=== PATIENT | male | born 1945 | race Caucasian/White ===

== ENCOUNTER 2018-09-28 08:39 | Outpatient (CLI) | payer MEDICARE ==
--- NOTE | 2018-09-28 11:04 | CT ---
CT OF ABDOMEN AND PELVIS PERFORMED WITH INTRAVENOUS CONTRAST ENHANCEMENT: History: Prostate cancer with rising PSAs. History of blood clots and a venocaval filter. Comparison: None. FINDINGS: The lung bases show some linear atelectasis or scar. No pulmonary nodules or pleural effusions. The liver and spleen are normal in appearance. The pancreas shows a tiny cystic lesion of the body of the pancreas measuring 15 mm. This could represent a small cystic neoplasm of the pancreas. The gall bladder shows a large single gallstone. Right and left adrenal glands and right and left kidneys are normal in size. There is no significant periaortic or mesenteric adenopathy. CT OF PELVIS PERFORMED WITH CONTRAST ENHANCEMENT: Patient has undergone prostate surgery. There is a mass seen along the left side of the base of the b ladder that measures approximately 1.6 cm. There is no significant pelvic lymphadenopathy noted. Surg ical clips are seen near the level of the aortic bifurcation. Review of osseous structures show no lytic or blastic bony changes. IMPRESSION: 1. Approximately 16 mm mass seen along the left side of the base of the bladder. Further evaluation w ith cystoscopy would be recommended. 2. No signs of any significant pelvic or abdominal adenopathy or evidence of mass. 3. Gallstone. 4. 15 mm cystic appearing lesion at the body of the pancreas. 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 Follow up in 6-12 months would be recommended. 5. Hiatal hernia incidentally noted. POS: [facility]
[2018-09-28] MEDS ORDERED: Iopamidol 370 76% 100 ML VIAL ONE (13:16)
--- NOTE | 2018-09-28 15:21 | NM ---
NUCLEAR MEDICINE BONE SCAN: HISTORY: Malignant neoplasm. History of prostate cancer. PSAs have risen. History of blood clots with infer ior vena cava filter. TECHNIQUE: Whole body spot images are performed. The patient was injected with 32 millicuries technetium 99m AB P intravenously. FINDINGS: There is evidence for bilateral renal and bladder activity. There is a focal area of increased activ ity at what appears to be approximately the left anterior 5th rib, near the costochondral junction. This rib appears to be slightly deformed, with an appearance more suggesting that of a healed or heal ing fracture, rather than an overt metastasis. There is some minimal increased activity involving th e L5-S1 region, on the right and left side, as well as the T10-T11 region on the right side, and a sm all focus of increased activity in the left cervical spine region. Minimally increased activity in t he shoulders, knees, and ankles, evidence for degenerative and osteoarthrosis change. IMPRESSION: 1. Several scattered areas of abnormal increased activity noted, as above. 2. The left 5th anterior rib, at the anterior costochondral junction region, has an appearance most suggestive of a rib fracture. 3. The other areas of increased activity are certainly nonspecific and certainly could represent deg enerative and osteoarthrosis changes. No scan evidence for definitively metastasis. POS: [facility]
== END 2018-09-28 08:40 | disposition home or self-care (01) ==
LOC: CT 08:39
PROVIDERS: ATTEND Radiology Radiation Oncology
DX: C61 Malignant neoplasm of prostate (principal); R97.21 Rising PSA following treatment for malignant neoplasm of prostate; K80.80 Other cholelithiasis without obstruction; K86.2 Cyst of pancreas
CPT/HCPCS: 74177; 78306; 82565; A9503; Q9967

== ENCOUNTER 2018-10-20 00:30 | Outpatient (CLI) | payer MEDICARE ==
[2018-10-20 10:17] LABS: Hemoglobin 14.3 g/dL (14.0-18.0); Mean Corpuscular HGB CONC 32.9 g/dL (32.0-36.0); Mean Corpuscular Hemoglobin 30.3 pg (27.0-31.0); Mean Corpuscular Volume 92.1 fL (78.0-98.0); Mean Platelet Volume 7.3 fL (7.4-10.4); Platelet Count 196 thou/uL (130-400); RBC Distribution Width 12.3 % (11.5-14.5); Red Blood Cell (RBC) Count 4.72 mill/uL (4.70-6.10); White Blood Cell (WBC) Count 6.5 thou/uL (4.8-10.8)
[2018-10-20 10:18] LABS: INR-International Normal Ratio 2.1; PTT 42.8 SEC (22.9-36.1)
[2018-10-20 10:31] LABS: Anion Gap 12 mmol/L (10-20); BUN (Urea Nitrogen) 19 mg/dL (8.4-25.7); Calc. Creatinine Clearance 0 mL/min (70-130); Calcium 9.9 mg/dL (7.8-10.44); Carbon Dioxide 27 mmol/L (23-31); Chloride 100 mmol/L (98-107); Estimated GFR-MDRD 76; Glucose 113 mg/dL (83-110); Potassium 4.5 mmol/L (3.5-5.1); Sodium 134 mmol/L (136-145)
--- NOTE | 2018-10-21 07:44 | EKG ---
Test Reason : Blood Pressure : / mmHG Vent. Rate : 059 BPM Atrial Rate : 059 BPM P-R Int : 292 ms QRS Dur : 102 ms QT Int : 420 ms P-R-T Axes : 066 010 061 degrees QTc Int : 415 ms Sinus bradycardia with 1st degree A-V block Cannot rule out Anterior infarct , age undetermined /Poor R wave progression Abnormal ECG No previous ECGs available Confirmed by WALTER ROSEN ([id number]) on 10/21/2018 7:43:39 AM Referred By: GLORIA Confirmed By:WALTER ROSEN
== END 2018-10-20 00:31 | disposition home or self-care (01) ==
LOC: LABBT 00:30
PROVIDERS: ATTEND Urology
DX: Z01.818 Encounter for other preprocedural examination (principal); D49.4 Neoplasm of unspecified behavior of bladder
CPT/HCPCS: 80048; 85027; 85610; 85730; 93005; 93010

== ENCOUNTER 2018-10-25 07:57 | Day surgery (SDC) | payer MEDICARE ==
[2018-10-20 08:47] VITALS: BMI 37.8
[2018-10-25] MEDS ORDERED: Sodium Chloride 0.9% 100 ML ONE (08:20)
[2018-10-25] MEDS ORDERED: cefTRIAXone\\ROCEPHIN 2 GM VIAL ONE (08:20)
[2018-10-25] MEDS ORDERED: Fentanyl 100 MCG/2 ML VIAL ONE (09:56)
[2018-10-25] MEDS ORDERED: Famotidine/PF 20 mg/2ml Vial ONE (09:56)
[2018-10-25] MEDS ORDERED: Iothalamate Meglumine 60% 50 ML VIAL FS ONE (09:57)
--- NOTE | 2018-10-25 12:49 | OP ---
DATE OF PROCEDURE: 10/25/2018 PREOPERATIVE DIAGNOSIS: Bladder tumors. POSTOPERATIVE DIAGNOSIS: Bladder tumors. PROCEDURES PERFORMED: Cysto, transurethral resection of bladder tumour, and bilateral retrogrades and intravesical instillation of chemotherapeutic agent. ANESTHESIA: General. ESTIMATED BLOOD LOSS: Less than 50 mL. DRAINS PLACED: An 18-English Castellon catheter with 20 mL in wound. FINDINGS: He had a 2-cm papillary tumor on the floor just to the left of the midline, that was done, both the superficial and deep. The other tumors were all 0.5 cm or less. There were a group of them that were around, but not involving in the ureteral orifice and bladder neck and some satellite ones. These were sent off as bladder tumors from bladder neck and additional bladder tumors. Retrograde studies were done that did not show any persistent filling defect or any areas of obstruction. This was done after the resection, to be sure that they did drain well and that no stents would be required. DESCRIPTION OF PROCEDURE: Obtained written and verbal consent from the patient after receiving IV antibiotics, he was taken to the operating suite. He was placed in the supine position on the treatment table. PlexiPulses were placed on his lower extremities and turned on. He was given a general anesthetic and oral intubation. He was placed in dorsal lithotomy position. He was sterilely prepped and draped. Cystoscopy was performed with a 22-English sheath. This was well lubricated, passed under direct vision through the male urethra into the bladder with a 30-degree lens and video camera, and monitor. The bladder was filled and emptied, these were examined with both the 30 and 70-degree lenses. We then removed the instruments to pass a 24-English resectoscope sheath. This did require dilatation up to 26-English with [place] sounds. The sheath was well lubricated and passed with the visual obturator through the male urethra into the bladder. The obturator was removed and Martin resectoscope with gyrus generator and gyrus bladder tumor loop, a 30 lens and video camera and monitor were used. We initially resected the bladder tumor on the floor and sent this as the individual specimen. The small bladder tumors around the trigone and bladder neck region and sent those as a specimen. Then, additional bladder tumors that were laterally, sent them as a separate specimen and then deep from the initial floor resection, we then cauterized all these areas. We removed the instruments, brought back in a 22-English sheath with 30-degree lens, well lubricated through the male urethra into the bladder with aid of a 30-degree lens and video camera and monitor, flushed a 5-English Pollack catheter, took a custodial aide film with the fluoroscopy unit and then did a left retrograde followed by right retrograde using about 15 mL of contrast in both sides and then taking delayed films to be sure both ureters drained well, which they did. The findings are as above. A Castellon catheter was then sterilely inserted. The bladder was drained. It was gently irrigated with some sterile water, it was clear. We then passed a 50 mL of fluid that containing 40 mg of mitomycin and placed the catheter plugging that will stay until he recovers in 30 to 40 minutes in Recovery Room. He was then taken down the dorsal lithotomy position, awakened, extubated, and taken by stretcher to Recovery Room. Job ID: [id number]
--- NOTE | 2018-10-25 13:14 | RAD ---
RETROGRADE IVP TWO IMAGES: INDICATIONS: History of cystoscopy. COMPARISON: Prior CT abdomen and pelvis dated 09/28/2018. FINDINGS: The two submitted images demonstrate a cystoscope present within the lower central pelvis. There is selection of the right and left distal ureters with retrograde opacification with contrast. No visib le filling defect or strictures identified. The patient's known left-sided bladder mass is not detai led on the current examination. An IVC filter is seen to the right of midline, at L2. There are num erous surgical clips seen within the left aspect of the retroperitoneum. IMPRESSION: No visible filling defect or stricture seen within the opacified ureters bilaterally. POS: [facility]
== END 2018-10-25 13:33 | disposition home or self-care (01) ==
LOC: SDC 07:57
PROVIDERS: ATTEND Urology
PROC: 0T5B8ZZ Destruction of Bladder, Via Natural or Artificial Opening Endoscopic (ICD-10-PCS; principal; 2018-10-25)
PROC: BT141ZZ Fluoroscopy of Kidneys, Ureters and Bladder using Low Osmolar Contrast (ICD-10-PCS; 2018-10-25)
DX: C67.9 Malignant neoplasm of bladder, unspecified (principal); I10 Essential (primary) hypertension; K21.9 Gastro-esophageal reflux disease without esophagitis; Z86.718 Personal history of other venous thrombosis and embolism; Z86.711 Personal history of pulmonary embolism; Z79.01 Long term (current) use of anticoagulants; Z79.899 Other long term (current) drug therapy
CPT/HCPCS: 52234; 74420; J9280; 88305; 88307; A4216; C1758; J0131; J0696; J3010; J7050; Q9961; S0028

== ENCOUNTER 2019-02-03 01:32 | Outpatient (CLI) | payer MEDICARE ==
[2019-02-03 15:28] LABS: Hemoglobin 13.7 g/dL (14.0-18.0); Mean Corpuscular HGB CONC 33.8 g/dL (32.0-36.0); Mean Corpuscular Hemoglobin 30.5 pg (27.0-31.0); Mean Corpuscular Volume 90.3 fL (78.0-98.0); Platelet Count 215 thou/uL (130-400); RBC Distribution Width 12.4 % (11.5-14.5); Red Blood Cell (RBC) Count 4.48 mill/uL (4.70-6.10); White Blood Cell (WBC) Count 7.7 thou/uL (4.8-10.8)
[2019-02-03 15:53] LABS: Anion Gap 10 mmol/L (10-20); BUN (Urea Nitrogen) 24 mg/dL (8.4-25.7); Calc. Creatinine Clearance 0 mL/min (70-130); Calcium 9.9 mg/dL (7.8-10.44); Carbon Dioxide 29 mmol/L (23-31); Chloride 100 mmol/L (98-107); Estimated GFR-MDRD 85; Glucose 101 mg/dL (83-110); Potassium 4.4 mmol/L (3.5-5.1); Sodium 135 mmol/L (136-145)
== END 2019-02-03 01:33 | disposition home or self-care (01) ==
LOC: LABBT 01:32
PROVIDERS: ATTEND Urology
DX: Z01.818 Encounter for other preprocedural examination (principal); C67.8 Malignant neoplasm of overlapping sites of bladder
CPT/HCPCS: 80048; 85027; 87086

== ENCOUNTER → 2019-02-07 | Day surgery (SDC) | payer MEDICARE ==
[2019-02-03 13:40] VITALS: BMI 36.5
[~2019-02-07] MED LIST: Fentanyl 100 MCG/2 ML VIAL ONE; Iothalamate Meglumine 60% 50 ML VIAL FS ONE
[2019-02-07 06:56] LABS: INR-International Normal Ratio 1.1; PTT 32.6 SEC (22.9-36.1); Prothrombin Time 14.6 SEC (12.0-14.7)
--- NOTE | 2019-02-07 08:09 | RAD ---
Retrograde pyelogram: 02/07/2019 COMPARISON: 10/25/2018 HISTORY: Stone/stent FINDINGS: IVC filter present. Postoperative clips noted in the medial left lower quadrant. Contrast m edia is injected into bilateral ureters opacifying normal caliber ureters bilaterally. No discrete filling defect is apparent on either side. Configuration of the renal collecting system is stable sigrid aterally when compared to the 10/25/2018 examination. IMPRESSION: Stable bilateral retrograde pyelogram.
--- NOTE | 2019-02-07 11:43 | CT ---
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 No pericardial effusion. Focal area of scar or atelectasis right lower lobe, similar. There is cholelithiasis. Spleen is unremarkable. Hypodensity superior pole right kidney too small ful ly characterize although statistically likely a cyst. No hydronephrosis. IVC filter is in place. There are what appear to be surgical clips along the left retroperitoneal periaortic kelli chain. Mild focal ectasia of the infrarenal abdominal aorta without aneurysmal dilatation. A the junction of the ventral aspect of the pancreatic head and body is a size and changes nonenhanci ng fluid consistency mass of the pancreas. This does not have clear communication with the main pancreatic duct. Remainder the pancreas is unremarkable. No adenopathy. Liver is unremarkable. The celiac trunk is patent. There is approximately 30-40% narro wing of the superior mesenteric artery for length of 4 cm due to soft plaque. Distal branches are patent. 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 Per ACR white paper, pancreatic protocol CT or MRI recommended in 6 months.
--- NOTE | 2019-02-07 13:54 | OP ---
DATE OF PROCEDURE: 02/07/2019 PREOPERATIVE DIAGNOSIS: History of transitional cell carcinoma of the urinary bladder. POSTOPERATIVE DIAGNOSIS: History of transitional cell carcinoma of the urinary bladder. PROCEDURES PERFORMED: Cystoscopy, bilateral retrogrades, and bladder biopsies. ANESTHETIC: General. EBL: Minimal. FINDINGS: There was one area on the right side of the bladder wall behind the right ureteral orifice that appeared to be a very early papillary cancer. There is a little bit of area of thickening mucosa on the trigone, I think this is a prior biopsy site. This is rebiopsy. There is area in the floor that we rebiopsied, which was a prior biopsy site that do not look suspicious and then, there was an area of some abnormal mucosa that did not look very suspicious for cancer, but was abnormal in its appearance. This was also biopsied. These areas were cauterized. Retrograde study revealed no persistent filling defects or evidence of hydronephrosis. DESCRIPTION OF PROCEDURE: Obtained written and verbal consent from the patient. After receiving IV antibiotics, he was taken to the operating suite. He was placed in supine position on the treatment table. PlexiPulses were placed in his lower extremities and turned on. He was given a general anesthetic and oral obturator intubation. He was placed in dorsal lithotomy position and sterilely prepped and draped. The C-arm was placed over him into position with fluoroscopic guidance for retrograde study. Cystoscopy was performed with a 22-Citizen [place] sheath. This was well lubricated and passed under direct vision through the male urethra into the urinary bladder with the aid of a 30-degree lens and video camera and monitor. The bladder was filled and emptied number of times. He was examined both with 30 and 70-degree lens. Going back to a 30-degree lens, we used this to do retrograde studies. A 5-[place]izen [place] cone-tipped catheter was flushed with contrast and brought in and payroll accounting manager film was taken with fluoroscopy unit. Catheter was advanced up to the left ureteral orifice contrast was injected in retrograde manner slowly. Images being taken as we give this injection side was done in the same way. At this point, we brought in a small biopsy forceps and biopsied these 4 different areas and sending them off individually and then using a Bugbee to cauterize these areas. There was no significant bleeding. We did not leave a Castellon catheter, but drained the bladder, removed the instruments. Took him out of the dorsal lithotomy position. He was awakened and extubated, taken by stretcher to recovery room. Job ID: [id number]
== END ==
LOC: SDC 05:58
PROVIDERS: ATTEND Urology
PROC: 0TBB8ZX Excision of Bladder, Via Natural or Artificial Opening Endoscopic, Diagnostic (ICD-10-PCS; principal; 2019-02-07)
DX: D09.0 Carcinoma in situ of bladder (principal); K80.20 Calculus of gallbladder without cholecystitis without obstruction
CPT/HCPCS: 74170; 74175; 74420; 85610; 85730; 88305; 88341; 88342; J0131; J0690; J3010; Q9961

== ENCOUNTER 2019-05-23 05:31 | Day surgery (SDC) | payer MEDICARE ==
[2019-05-20 08:48] VITALS: BMI 36.5
[2019-05-23] MEDS ORDERED: Fentanyl 100 MCG/2 ML VIAL ONE (06:26)
[2019-05-23] MEDS ORDERED: Famotidine/PF 20 mg/2ml Vial ONE (06:26)
[2019-05-23 06:41] LABS: #Basophils 0.1 thou/uL (0.0-0.2); #Eosinphils 0.2 thou/uL (0.0-0.7); #Lymphocytes 1.3 thou/uL (1.20-3.40); #Monocytes 0.5 thou/uL (0.11-0.59); #Neutrophils 4.9 thou/uL (1.40-6.50); %Basophils 0.7 % (0.0-1.0); %Monocytes 7.1 % (0.0-10.0); %Neutrophils 70.2 % (42.0-75.0); Hemoglobin 14.5 g/dL (14.0-18.0); Mean Corpuscular HGB CONC 34.5 g/dL (32.0-36.0); Mean Corpuscular Hemoglobin 30.3 pg (27.0-31.0); Mean Corpuscular Volume 87.8 fL (78.0-98.0); Mean Platelet Volume 6.6 fL (7.4-10.4); Platelet Count 198 thou/uL (130-400); RBC Distribution Width 12.3 % (11.5-14.5); Red Blood Cell (RBC) Count 4.79 mill/uL (4.70-6.10); White Blood Cell (WBC) Count 6.9 thou/uL (4.8-10.8)
[2019-05-23 06:56] LABS: PTT 35.2 SEC (22.9-36.1)
[2019-05-23 06:57] LABS: INR-International Normal Ratio 1.1; Prothrombin Time 13.9 SEC (12.0-14.7)
[2019-05-23 07:00] LABS: Anion Gap 8 mmol/L (10-20); BUN (Urea Nitrogen) 17 mg/dL (8.4-25.7); Calc. Creatinine Clearance 98 mL/min (70-130); Calcium 9.8 mg/dL (7.8-10.44); Carbon Dioxide 29 mmol/L (23-31); Chloride 98 mmol/L (98-107); Estimated GFR-MDRD 73; Glucose 125 mg/dL (83-110); Potassium 4.4 mmol/L (3.5-5.1); Sodium 131 mmol/L (136-145)
[2019-05-23] MEDS ORDERED: Iothalamate Meglumine 60% 50 ML VIAL FS ONE (07:12)
--- NOTE | 2019-05-23 08:14 | RAD ---
Retrograde ureterogram intraoperative fluoroscopy HISTORY: Urinary bladder cancer. FINDINGS: Intraoperative fluoroscopy was provided for retrograde study as performed by Dr. Johnson. Sp ot fluoroscopic images show contrast opacification of nondilated bilateral ureters and renal collecting systems. Metallic clips overlie the left retroperitoneum. IVC filter over the right upper quadrant.
--- NOTE | 2019-05-23 13:23 | OP ---
DATE OF PROCEDURE: 05/23/2019 PREOPERATIVE DIAGNOSIS: History of bladder cancer, status post induction BCG. PROCEDURES PERFORMED: Cysto, bilateral retrogrades, and bladder biopsies. ANESTHESIA: General. ESTIMATED BLOOD LOSS: Minimal. DRAINS: None. SPECIMENS: Path sent: Random bladder biopsies done from the floor, posterior wall, anterior wall, and lateral lopez. He had biopsies done from previous tumor site on the left side and a biopsy done at the left side of the bladder neck region, where he had just some minor little papillary type changes. He has an absent prostate from having a radical prostatectomy a few years ago for prostate cancer. DESCRIPTION OF PROCEDURE: After obtaining written and verbal consent from the patient and after receiving IV antibiotics, he was taken to the operating suite. He was placed in a supine position on the treatment table. PlexiPulses were placed in his lower extremities and turned on. He was given a general anesthetic and oral obturator intubation. He was placed in the dorsal lithotomy position, and he was sterilely prepped and draped. Cystoscopy was performed with a 22-[place] sheath. This was well lubricated and passed under direct vision through the male urethra into the urinary bladder with aid of a 30-degree lens, video camera, and monitor. The bladder was examined with both the 30 and the 70-degree lens and filled and emptied number of times. At this point, a 5-[place] cone-tipped catheter was flushed with contrast and edge brusher KUB was taken with the fluoroscopy unit. The cone-tipped catheter was placed in the left ureteral orifice, and contrast was slowly injected in a retrograde manner, filling out the entire left ureter and upper collecting system. Images were taken. This about 12 to 15 mL was used. The right side done on the same way and draining since then. We then used a cold cup biopsy forceps to do some random biopsies and then used a Bugbee to cauterize these. We then used a cold cup biopsy area on the left side, where the prior tumors were and three were taken and we cauterized these areas. There was a small area at the bladder neck on the left side that we biopsied with cold cup and then cauterized that. At this point, the bladder was drained. The instruments were removed. There was no obvious bladder tumor noted. The mucosa for the most part looked normal and a little bit of rough areas down near where prior tumor sites were, but nothing that he could look at and obviously say was bladder cancer or highly suspicious for. We will see what his pathology shows. At this point, he was awakened and extubated and taken by stretcher to recovery. The catheter was not left indwelling. Job ID: [id number]
== END 2019-05-23 09:49 | disposition home or self-care (01) ==
LOC: SDC 05:31
PROVIDERS: ATTEND Urology
PROC: 0TBB8ZX Excision of Bladder, Via Natural or Artificial Opening Endoscopic, Diagnostic (ICD-10-PCS; principal; 2019-05-23)
DX: N30.20 Other chronic cystitis without hematuria (principal); E03.9 Hypothyroidism, unspecified; Z85.46 Personal history of malignant neoplasm of prostate; Z85.51 Personal history of malignant neoplasm of bladder; Z79.01 Long term (current) use of anticoagulants; Z79.899 Other long term (current) drug therapy
CPT/HCPCS: 36415; 74420; 80048; 85025; 85610; 85730; 88305; J0131; J0690; J3010; S0028

== ENCOUNTER 2022-09-22 07:23 | Day surgery (SDC) | payer MEDICARE ==
[2022-09-19 09:34] VITALS: BMI 39.5
[2022-09-22] MEDS ORDERED: Iopamidol 30 ML ONE (10:14)
[2022-09-22] MEDS ORDERED: fentaNYL PF 100 MCG/2 ML SYRINGE ONE (10:25)
[2022-09-22] MEDS ORDERED: Levofloxacin 500 mg/D5W 100 ml Premix Bag ONE (10:26)
[2022-09-22] MEDS ORDERED: Dexamethasone 20 MG/5 ML VIAL ONE (10:44)
[2022-09-22] MEDS ORDERED: Lidocaine 1% PF 5 ML VIAL ONE (10:44)
[2022-09-22] MEDS ORDERED: PROPOFOL 200 MG/20 ML VIAL ONE (10:44)
[2022-09-22] MEDS ORDERED: Ondansetron PF 4 MG/2 ML Vial ONE (10:44)
[2022-09-22] MEDS ORDERED: Rocuronium Bromide 10 MG/ML (10ML VIAL) ONE (10:44)
[2022-09-22] MEDS ORDERED: ePHEDrine 50 MG/ML VIAL ONE (10:44)
[2022-09-22] MEDS ORDERED: SUGAMMADEX SODIUM 200 MG/2 ML VIAL ONE (11:03)
== END 2022-09-22 14:01 | disposition home or self-care (01) ==
LOC: SDC 07:23
PROVIDERS: ATTEND Urology
PROC: 0TBB8ZZ Excision of Bladder, Via Natural or Artificial Opening Endoscopic (ICD-10-PCS; principal; 2022-09-22)
DX: D49.4 Neoplasm of unspecified behavior of bladder (principal); I10 Essential (primary) hypertension; Z85.46 Personal history of malignant neoplasm of prostate; Z85.51 Personal history of malignant neoplasm of bladder; Z79.01 Long term (current) use of anticoagulants; Z79.890 Hormone replacement therapy; Z79.899 Other long term (current) drug therapy
CPT/HCPCS: 74420; 88305; J1100; J1956; J2405; J2704; J3490; Q9967

== ENCOUNTER 2023-09-17 08:08 | Outpatient (CLI) | payer MEDICARE ==
[2023-09-17 10:34] LABS: #Eosinphils 0.1 10x3/uL (0.0-0.5); #Monocytes 0.4 10x3/uL (0.0-1.1); %Basophils 0.6 % (0.0-2.0); %Eosinophils 2.1 % (0.0-6.0); %Lymphocytes 13.9 % (18.0-47.0); %Monocytes 6.4 % (0.0-10.0); %Neutrophils 76.5 % (40.0-75.0); Hemoglobin 13.6 g/dL (13.5-17.5); Mean Corpuscular HGB CONC 33.2 g/dL (32.0-36.0); Mean Corpuscular Hemoglobin 29.5 pg (27.0-33.0); Mean Corpuscular Volume 88.9 fl (81.2-95.1); Platelet Count 206 10x3/uL (150-450); RBC Distribution Width 13.5 % (11.5-14.5); Red Blood Cell (RBC) Count 4.61 10x6/uL (4.32-5.72); White Blood Cell (WBC) Count 6.5 10x3/uL (3.5-10.5)
[2023-09-17 10:56] LABS: Anion Gap 13 mmol/L (10-20); BUN (Urea Nitrogen) 17 mg/dL (8.4-25.7); Calc. Creatinine Clearance 0 mL/min (70-130); Calcium 9.2 mg/dL (7.8-10.44); Carbon Dioxide 27 mmol/L (23-31); Chloride 103 mmol/L (98-107); Estimated GFR 79; Glucose 108 mg/dL (83-110); Potassium 4.3 mmol/L (3.5-5.1); Sodium 139 mmol/L (136-145)
== END 2023-09-17 08:09 | disposition home or self-care (01) ==
LOC: LABBT 08:08
PROVIDERS: ATTEND Surgery
DX: Z01.818 Encounter for other preprocedural examination (principal); K40.90 Unilateral inguinal hernia, without obstruction or gangrene, not specified as recurrent; L98.9 Disorder of the skin and subcutaneous tissue, unspecified
CPT/HCPCS: 80048; 85025; 93005; 93010

== ENCOUNTER 2023-09-24 06:21 | Day surgery (SDC) | payer MEDICARE ==
[2023-09-17 08:36] VITALS: BMI 37.0
[2023-09-24] MEDS ORDERED: EPINEPHrine 1 MG/ML VIAL ONE (06:56)
[2023-09-24] MEDS ORDERED: Bupivacaine PF 0.5% 30 ML VIAL ONE (06:57)
[2023-09-24] MEDS ORDERED: Bupivacaine 0.25% HCL 30 ML VIAL ONE (06:57)
[2023-09-24] MEDS ORDERED: Lidocaine 1% PF 5 ML VIAL ONE (07:05)
[2023-09-24] MEDS ORDERED: Dexamethasone 20 MG/5 ML VIAL ONE (07:05)
[2023-09-24] MEDS ORDERED: fentaNYL PF 100 MCG/2 ML SYRINGE ONE (07:05)
[2023-09-24] MEDS ORDERED: Ondansetron PF 4 MG/2 ML Vial ONE (07:05)
[2023-09-24] MEDS ORDERED: Rocuronium Bromide 10 MG/ML (10ML VIAL) ONE (07:06)
[2023-09-24] MEDS ORDERED: PROPOFOL 20 ML ONE ×2 (07:06→07:35)
[2023-09-24] MEDS ORDERED: Sodium Chloride 0.9% 100 ML ONE (07:24)
[2023-09-24] MEDS ORDERED: CEFAZOLIN 2 GM VIAL ONE (07:24)
[2023-09-24] MEDS ORDERED: Sevoflurane 250 ML INH ANEST BOTTLE ONE (07:41)
[2023-09-24] MEDS ORDERED: Dexamethasone 4 mg/ml Vial ONE (07:43)
[2023-09-24] MEDS ORDERED: ePHEDrine Sulfate 50 MG/10 ML VIAL ONE (07:49)
[2023-09-24] MEDS ORDERED: Glycopyrrolate 0.2 MG/ML 5 ML SYRINGE ONE (07:49)
[2023-09-24] MEDS ORDERED: fentaNYL 50 mcg/mL 1 mL Vial ONE ×2 (09:03→09:16)
[2023-09-24] MEDS ORDERED: HYDROmorphone 0.5 MG/0.5 ML SYRINGE ONE (09:30)
[2023-09-24] MEDS ORDERED: HYDROcodone/Acetaminophen 5/325 mg Tablet ONE (10:47)
== END 2023-09-24 11:55 | disposition home or self-care (01) ==
LOC: SDC 06:21
PROVIDERS: ATTEND Surgery
PROC: 0YU50JZ Supplement Right Inguinal Region with Synthetic Substitute, Open Approach (ICD-10-PCS; principal; 2023-09-24)
PROC: 0JBB0ZZ Excision of Perineum Subcutaneous Tissue and Fascia, Open Approach (ICD-10-PCS; 2023-09-24)
DX: K40.90 Unilateral inguinal hernia, without obstruction or gangrene, not specified as recurrent (principal); D17.23 Benign lipomatous neoplasm of skin and subcutaneous tissue of right leg; E07.9 Disorder of thyroid, unspecified; I10 Essential (primary) hypertension; Z79.890 Hormone replacement therapy; Z88.8 Allergy status to other drugs, medicaments and biological substances; Z91.040 Latex allergy status; Z79.899 Other long term (current) drug therapy
CPT/HCPCS: 27337; 49505; C1781; J0171; J3010; 88304; J0665; J1100; J1170; J2405; J2704; J3490